=== PATIENT | male | born 1985 | race Caucasian/White ===

== ENCOUNTER 2023-07-02 22:59 | Emergency (ER) | payer OTHER, SELFPAY ==
[2023-07-02 23:03] VITALS: BP 150/92; BP 167/94; PULSE 72; PULSE 90; RESP 18; TEMP 36.6; O2SAT 100; O2SAT 98; BMI 23.5
--- NOTE | 2023-07-03 01:25 | ED.GENADULT ---
HPI - General Adult General Chief complaint: Extremity Injury, Lower Stated complaint: Foot pain Time Seen by Provider: 07/03/23 01:02 Source: patient, RN notes reviewed and old records reviewed Mode of arrival: ambulatory Limitations: no limitations History of Present Illness HPI narrative: 37-year-old male presents for evaluation of bilateral foot pain. He reports he has been homeless and walking around. He denies any fevers, chills. He reports blisters to both of his feet. He believes his shoes are ?too small. ? Denies any trauma to the area Denies any depression or suicidal ideation at this time Related Data Allergies Allergy/AdvReac Type Severity Reaction Status Date / Time No Known Allergies Allergy Verified 07/02/23 23:06 Review of Systems Musculoskeletal: Comments: Bilateral foot pain Integumentary/Breasts: Skin/Breast: Reports sores Physical Exam ED Vital Signs: Vital Signs - 24 hr 07/02/23 23:03 Temperature 97.8 F Pulse Rate 72 Respiratory Rate 18 Blood Pressure 150/92 H Pulse Oximetry 100 Oxygen Delivery Method Room Air BMI result Body Mass Index 23.5 Skin Other: Patient has superficial blisters to the medial aspect of both heels and to the great toe on both feet. No surrounding erythema, significant open wounds, drainage Medical Decision Making Medical Decision Making MDM Narrative: Patient is homeless, he is walking around in the rain. His shoes are too small. Fortunately, we had appropriate size shoes in the donation bin that were provided to the patient. He was given some bandages to cover the blisters and instructed to keep it dry. He was also provided a pair of dry pants. He has no evidence of cellulitis or candidiasis Differential Diagnosis Differential Diagnoses: The differential diagnosis associated with the presentation includes Sores Blisters Cellulitis Paronychia Candidiasis Discharge Plan Discharge Clinical Impression: Bilateral foot pain Patient Disposition: Home, Self-Care Instructions: Blister (ED) Additional Instructions: Your feet do not appear infected, however you should keep them clean and dry as best as possible to prevent further blisters. Use ibuprofen or Tylenol for pain
== END 2023-07-03 02:24 | disposition home or self-care (01) ==
PROVIDERS: Emergency Provider Internal Medicine
DX: M79.671 Pain in right foot (principal); M79.672 Pain in left foot
CPT/HCPCS: 99282

== ENCOUNTER 2023-07-16 16:09 | Inpatient (IN) | payer OTHER, SELFPAY ==
[2023-07-16 16:42] VITALS: BP 143/80; PULSE 87; RESP 16; TEMP 36.8; O2SAT 98; BMI 23.5
[2023-07-16 16:45] VITALS: PULSE 82; RESP 14; O2SAT 97
--- NOTE | 2023-07-16 16:59 | ED.PSYCH ---
HPI - Psych General Chief Complaint: Psychiatric Symptoms Stated Complaint: SI Time Seen by Provider: 07/16/23 16:39 Source: patient Mode of arrival: ambulatory Limitations: no limitations History of Present Illness HPI Narrative: 37 year old male hx of IVDA ( cocaine and heroin), anxiety, depression, homelessness presenting w/ concerns of suicidal ideation w/ plan to overdose. Patient wanted to try to overdose today however, did not have enough money to do so. Patient tells me his family life isnt where he wants it to be and this hs been bothering him. He doesnt have much of a support system. Today he even told his brother he wanted to . After he realized he didnt have enough money to buy drugs to overdose he though about jumping off a bridge. Tells me hes having drug induced paranoia also. Denies medical complaints. Related Data Home Medications Medication Instructions Recorded Confirmed bupropion HCl 150 mg 24 hr tablet, 150 mg PO QAM 07/16/23 07/16/23 extended release bupropion HCl 300 mg 24 hr tablet, 300 mg PO DAILY 07/16/23 07/16/23 extended release clonidine HCl 0.1 mg tablet 0.2 mg PO BID 07/16/23 07/16/23 lamotrigine 150 mg tablet 150 mg PO DAILY 07/16/23 07/16/23 methadone 10 mg/mL oral 100 mg PO DAILY 07/16/23 07/16/23 concentrate (Methadose) mirtazapine 45 mg tablet 45 mg PO BEDTIME 07/16/23 07/16/23 nicotine 21 mg/24 hr daily 1 patch topical DAILY 07/16/23 07/16/23 transdermal patch quetiapine 200 mg tablet 200 mg PO BEDTIME 07/16/23 07/16/23 Allergies Allergy/AdvReac Type Severity Reaction Status Date / Time No Known Allergies Allergy Verified 07/16/23 16:48 Review of Systems Review of Systems: Constitutional : No Weight loss, No Fever, No Chills, No Fatigue, No Malaise ENT/Mouth : No sore throat, No Rhinorrhea Eyes: No Eye Pain, No Swelling, No Redness Cardiovascular : No Chest Pain, No SOB, No Dyspnea on Exertion, No Orthopnea, No Edema, No Palpitations Respiratory : No Cough, No Sputum, No Wheezing Gastrointestinal : No Nausea, No Vomiting, No Diarrhea, No Constipation, No abdominal Pain, No Hematochezia, No Melena Genitourinary : No Dysuria, No Urinary Frequency, No Hematuria, Musculoskeletal : No joint pain, No Myalgias, No Joint Swelling Skin : No Skin Lesions, No rash Neuro : No Weakness, No Numbness, No Dizziness, No Headache Psych : + Anxiety/Panic, + Depression, + SI , No HI All other systems reviewed and are negative Yes all other systems are reviewed and are negative [facility] Social History Social History Alcohol intake: current Alcohol intake frequency: holidays/special occasions only Smoked in Last 30 Days: Yes Use of substances other than those prescribed or required for medical reasons: Yes Substance Use Type: Crack/Cocaine and Opiates Substance Use Frequency: Recent Binge Last Used Substance: Just Prior to Admission Any prior treatment program specific to substance use: No Advance Directives: No Advance Directives Information Provided: No Physical Exam Vital Signs: Vital Signs: Last Vital Signs Temp 98.3 F 07/16/23 16:42 Pulse 82 07/16/23 16:45 Resp 14 07/16/23 16:45 BP 143/80 H 07/16/23 16:42 Pulse Ox 97 07/16/23 16:45 O2 Del Method Room Air 07/16/23 16:45 BMI result Body Mass Index 23.5 Course Reevaluation(s) Reevaluation #1: CBC no acute findings needing intervention. Chemistry unremarkable. UA clean. + Fentanyl and cocaine. Negative ethynal At this time physician observation will be initiated. This will allow more time for patient to be evaluated by care team . At time observation was started patient common cooperative no acute distress, stable vital signs. Will continue to monitor. Time: 17:54 Medical Decision Making Medical Decision Making [facility] Narrative: 165 37 year old male presents w/ complaints of si w/ intent to overdose X months but worsening PE benign Hx and PE concerning for anxiety w/ depression & suicidal ideation. Unlikely metabolic derangements/ infection. Plan- medical clearance, evaluation by care team. -19:50: Care team evaluated the patient: Section 12. Patient has a significant history of suicide attempts including drinking motor oil. Differential Diagnosis Differential Diagnoses: The differential diagnosis associated with the presentation includes Hx and PE concerning for anxiety w/ depression & suicidal ideation. Unlikely metabolic derangements/ infection. Admission/Observation Consideration of admission/observation: Escalation of care including admission/observation considered possible Lab Data [facility] Lab Attestation statement: I reviewed the patient's lab results. 07/16/23 17:20 07/16/23 17:20 Labs: Lab Results 07/16/23 07/16/23 07/16/23 Range/Units 16:59 17:00 17:20 WBC 8.3 (4.8-10.8) X10*3/uL RBC 4.25 L (4.60-5.80) X10*6/uL Hgb 12.4 L (14.0-18.0) g/dl Hct 36.6 L (42.0-52.0) % MCV 86.1 (80.0-98.0) fL MCH 29.2 (27.0-33.0) pg MCHC 33.9 (31.0-36.0) g/dl RDW 13.2 (11.0-16.0) % Plt Count 260 (160-400) X10*3/uL MPV 9.0 L (9.4-12.4) fL Immature Gran % (Auto) 0.2 (0.0-0.4) % Neut % (Auto) 60.5 (45-73) % Lymph % (Auto) 28.6 (20-40) % [place] % (Auto) 8.9 (2-11) % Eos % (Auto) 1.4 (0-4) % Baso % (Auto) 0.4 (0-2) % Lymph # (Auto) 2.4 (1.2-4.9) X10*3/uL [place] # (Auto) 0.7 (0.1-1.2) X10*3/uL Eos # (Auto) 0.1 (0.0-0.4) X10*3/uL Baso # (Auto) 0.0 (0.0-0.2) X10*3/uL Abs Immat Gran (auto) 0.02 (0.00-0.03) X10*3/uL Absolute Neuts (auto) 5.0 (2.0-8.3) x10*3/uL Absolute Nucleated RBC 0.000 (0.0-0.012) X10*3/uL Nucleated RBC % (auto) 0.0 (0.0-0.2) /100WBC Sodium 141 (135-145) mmol/L Potassium 3.6 (3.3-5.1) mmol/L Chloride 107 (96-108) mmol/L Carbon Dioxide 24 (22-29) mmol/L Anion Gap 14 (12-20) BUN 19 H (9-16) mg/dL Creatinine 0.83 (0.5-1.4) mg/dL Estim Creat Clear Calc 115.0 Estimated GFR > 60 Random Glucose 97 (60-115) mg/dL Calcium 9.3 (8.4-10.2) mg/dL Total Bilirubin 0.4 (0.0-1.0) mg/dL AST 63 H (5-37) U/L ALT 30 (0-40) U/L Alkaline Phosphatase 75 (39-117) U/L Total Protein 8.1 H (6.5-8.0) g/dL Albumin 4.2 (3.5-5.0) g/dL Urine Color Dark Yellow Urine Appearance Clear Urine pH 6.0 (5.0-9.0) Ur Specific [place] >= 1.030 H (1.005-1.025) Urine Protein 30 (1+) H (Neg-Trace) mg/dL Urine Glucose (UA) Negative (Negative) mg/dL Urine Ketones Trace (Negative) mg/dL Urine Blood Negative (Negative) Urine Nitrite Negative (Negative) Ur Leukocyte Esterase Negative (Negative) Urine RBC 0-2 (0-2) /HPF Urine WBC 0-5 (0-5) /HPF Ur Squamous Epith Cells 0-2 (0-2) /HPF Urine Bacteria None Seen (None Seen) Hyaline Casts 0-2 (0-2) /LPF Urine Opiates Screen Not Detected (Not Detect) Urine Fentanyl Screen POSITIVE H (Not Detect) Ur Barbiturates Screen Not Detected (Not Detect) Ur Phencyclidine Scrn Not Detected (Not Detect) Ur Amphetamines Screen Not Detected (Not Detect) U Benzodiazepines Scrn Not Detected (Not Detect) Urine Cocaine Screen POSITIVE H (Not Detect) U Marijuana (THC) Screen Not Detected (Not Detect) Ethyl Alcohol < 10 mg/dL COVID-19 (FARIDA) Negative (Negative) COVID-19 Clin Com See Note Chronic Conditions Patient?s care impacted by: Other (polysubstance abuse ) Social Determinants Patient?s care significantly limited by Social Determinants of Health including: Inadequate housing, Low income, Alcoholism and drug addiction in family, Problems related to primary support group, Unemployment, Problems related to employment and Other Social Determinant of Health Critical Care Time Critical Care Time Critical Care Time: No Discharge Plan Discharge Clinical Impression: Depression, Suicidal ideation Patient Disposition: Still a Patient Prescriptions: No Action lamotrigine 150 mg tablet 150 mg PO DAILY clonidine HCl 0.1 mg tablet 0.2 mg PO BID quetiapine 200 mg tablet 200 mg PO BEDTIME nicotine 21 mg/24 hr patch 24 hour 1 patch topical DAILY mirtazapine 45 mg tablet 45 mg PO BEDTIME bupropion HCl 300 mg tablet extended release 24 hr 300 mg PO DAILY bupropion HCl 150 mg tablet extended release 24 hr 150 mg PO QAM methadone [Methadose] 10 mg/mL Concentrate 100 mg PO DAILY Interventions: [place]-Suicide Risk Severity Scale Last Done: 07/16/23 16:45
[2023-07-16 17:11] LABS: Appearance Urine Clear; Color Urine Dark Yellow; Glucose Urine UA Negative (Negative); Leukocyte Esterase Urine Negative (Negative); Nitrite Urine Negative (Negative); Specific Gravity - Urine >= 1.030 (1.005-1.025); UMIC TRIGGER UACC YES; Urine Blood Negative (Negative); Urine Ketones Trace mg/dL (Negative); Urine Protein 30 (1+) mg/dL (Neg-Trace)
--- NOTE | 2023-07-16 17:11 | PC.NURSE ---
Pt comes to the ED requesting help due to increasing SI thoughts with a plan to overdose to end his life. Pt reports increased drug use since being discharged from [facility] two days ago. Pt verbalizes that he was at [facility] for similar presentation and was receiving all his medications and methadone there. He is calm and cooperative, offering no complaints to this RN at this time, respirations even and unlabored, no apparent distress noted
[2023-07-16 17:15] LABS: Amphetamine Screen Urine Not Detected (Not Detect); Barbiturates, Urine Not Detected (Not Detect); Benzodiazepines Screen Urine Not Detected (Not Detect); Cannabinoid Screen Urine Not Detected (Not Detect); Cocaine Screen Urine POSITIVE (Not Detect); Fentanyl, urine POSITIVE (Not Detect); Opiate Screen Urine Not Detected (Not Detect); Phencyclidine Screen Urine Not Detected (Not Detect)
--- NOTE | 2023-07-16 17:16 | HE.PHANOTE ---
[facility] has received patient's last dose letter from Jammie Hemphill in a sealed envelope. Patient last received methadone 100 mg on 07/16/2023. Last dose letter signed by Willie Moreno RN. Keely Salcido, MarvinD
[2023-07-16 17:26] LABS: MANUAL DIFF FLAG NO
[2023-07-16 17:41] LABS: Basophils Percent Auto 0.4 % (0-2); Eosinophils Absolute Auto 0.1 X10*3/uL (0.0-0.4); Eosinophils Percent Auto 1.4 % (0-4); Hematocrit 36.6 % (42.0-52.0); Hemoglobin 12.4 g/dl (14.0-18.0); Imm Gran Abs Auto 0.02 X10*3/uL (0.00-0.03); Imm Gran Pct Auto 0.2 % (0.0-0.4); Lymphocytes Absolute Auto 2.4 X10*3/uL (1.2-4.9); Lymphocytes Percent Auto 28.6 % (20-40); Mean Corpuscular HGB Conc 33.9 g/dl (31.0-36.0); Mean Corpuscular Hemoglobin 29.2 pg (27.0-33.0); Mean Corpuscular Volume 86.1 fL (80.0-98.0); Monocytes Absolute Auto 0.7 X10*3/uL (0.1-1.2); Monocytes Percent Auto 8.9 % (2-11); Neutrophils Percent Auto 60.5 % (45-73); Platelet Count 260 X10*3/uL (160-400); Red Blood Count 4.25 X10*6/uL (4.60-5.80); Red Cell Distribution Width 13.2 % (11.0-16.0); White Blood Count 8.3 X10*3/uL (4.8-10.8)
[2023-07-16 17:44] LABS: Alanine Aminotransferase 30 U/L (0-40); Albumin Level 4.2 g/dL (3.5-5.0); Alkaline Phosphatase 75 U/L (39-117); Anion Gap 14 (12-20); Aspartate Amino Transferase 63 U/L (5-37); Bilirubin Total 0.4 mg/dL (0.0-1.0); Blood Urea Nitrogen 19 mg/dL (9-16); Calcium 9.3 mg/dL (8.4-10.2); Carbon Dioxide 24 mmol/L (22-29); Chloride 107 mmol/L (96-108); Estimated Glomerular Filt Rate > 60; Ethanol < 10 mg/dL; Glucose Random 97 mg/dL (60-115); Potassium 3.6 mmol/L (3.3-5.1); Sodium 141 mmol/L (135-145); Total Protein 8.1 g/dL (6.5-8.0)
[2023-07-16 17:55] LABS: COVID-19 Test Negative (Negative); IDNOW Serial# 08D9AD1C
[2023-07-16 18:25] LABS: Bacteria Urine None Seen (None Seen); Hyaline Casts Urine 0-2 /LPF (0-2); RBC Urine 0-2 /HPF (0-2); Squamous Epithelial Cell Urine 0-2 /HPF (0-2); WBC Urine 0-5 /HPF (0-5)
--- NOTE | 2023-07-16 19:17 | PC.NURSE ---
patient appears to remain asleep at present respirations are even and unlabored patient appears in no distress
--- NOTE | 2023-07-16 20:22 | PHA.MEDREC ---
Pharmacy Consult ? Medication Reconciliation Pharmacy has reviewed the medication reconciliation completed by Bri. Keely Salcido, MarvinD
[2023-07-16] MEDS: QUEtiapine Fumarate 200 MG TABLET PO (20:32)
[2023-07-16] MEDS: Mirtazapine 15 MG TABLET 45 MG PO (20:32)
[2023-07-16] MEDS: cloNIDine HCL 0.2 MG TABLET PO (20:32)
--- NOTE | 2023-07-16 21:46 | MHC.CARE ---
CARE Team evaluation complete. Pt is an inpatient bedsearch; on a section 12A for safety. ED Provider, POD RN and Pt are aware of disposition.
--- NOTE | 2023-07-17 | ECG_ITS ---
Test Reason : check qt Blood Pressure : / mmHG Vent. Rate : 067 BPM Atrial Rate : 067 BPM P-R Int : 144 ms QRS Dur : 086 ms QT Int : 418 ms P-R-T Axes : 039 020 006 degrees QTc Int : 441 ms Normal sinus rhythm Normal ECG No previous ECGs available Referred By: Koby Kovacs Electronically Signed By:VINCENT HATHAWAY
[2023-07-17 08:16] VITALS: BP 100/60; PULSE 78; RESP 18; TEMP 36.6; O2SAT 99
[2023-07-17] MEDS: lamoTRIgine 25 MG TABLET 150 MG PO (08:35)
[2023-07-17] MEDS: methADONE HCl 20 MG/2 ML ORAL.CONC 100 MG PO (08:36)
[2023-07-17] MEDS: buPROPion HCl XL 150 MG TAB.ER.24H PO (08:36)
[2023-07-17] MEDS: cloNIDine HCL 0.2 MG TABLET PO ×2 (08:36→20:31)
[2023-07-17] MEDS: buPROPion HCl XL 300 MG TAB.ER.24H PO (08:36)
[2023-07-17] MEDS: Nicotine Polacrilex 2 MG GUM BUCCAL (09:20)
--- NOTE | 2023-07-17 10:38 | PC.NURSE ---
patient medicated per the MAR, offering no complaints at this time. respirations even and unlabored, potential admission to the floors today
[2023-07-17 16:43] VITALS: BP 119/72; PULSE 66; RESP 20; TEMP 36.7; O2SAT 100
[2023-07-17] MEDS: Nicotine Polacrilex 2 MG GUM 4 MG BUCCAL ×3 (16:47→20:31)
--- NOTE | 2023-07-17 16:48 | PC.ADMIT ---
Pt is a 37 y/o persian speaking male admitted from the ED on a CV. Pt has admitted after increased suicidal ideation and depression. Pt was discharged from [facility] approx 5 days ago and didn't go to the CSS they were offering. Pt reported, that he wanted to overdose on Fentanyl or jump of the bridge. Pt is currently homeless. Pt was A&O x3, eye contact was poor, speech was low in tone. Pts mood is depressed with a blunted affect. Pt was calm and cooperative. Pt denied any plan or intent of SI/HI. Pt denied any paranoia, but crisis assessment says, pt was reporting increased paranoia about people being after him. Thought process was tangential. Pt reports difficulty getting too sleep and staying asleep. Pt reports he hasn't drank ETOH for ten years. Pts tox screen was positive Fentanyl and Cocaine. Pt says, I left [facility] and went on a cocaine binge. Pt has been using substances including cocaine and heroin for aprrox. 18 years, currently on Methadone. Pt has no acute medical issues. He does have a old umbilical hernia which he denies pain or discomfort from. Pt placed on 15 minute checks for safety.
[2023-07-17 20:24] VITALS: BP 106/54; PULSE 71; RESP 16; TEMP 37; O2SAT 97
[2023-07-17] MEDS: Mirtazapine 15 MG TABLET 45 MG PO (20:30)
[2023-07-17] MEDS: QUEtiapine Fumarate 200 MG TABLET PO (20:30)
[2023-07-18 08:00] VITALS: BP 111/77; PULSE 67; RESP 16; TEMP 36.3; O2SAT 100
[2023-07-18] MEDS: lamoTRIgine 25 MG TABLET 150 MG PO (08:54)
[2023-07-18] MEDS: buPROPion HCl XL 150 MG TAB.ER.24H PO (08:55)
[2023-07-18] MEDS: buPROPion HCl XL 300 MG TAB.ER.24H PO (08:55)
[2023-07-18] MEDS: methADONE HCl 20 MG/2 ML ORAL.CONC 100 MG PO (08:56)
[2023-07-18] MEDS: cloNIDine HCL 0.2 MG TABLET PO ×2 (09:00→20:28)
[2023-07-18] MEDS: Nicotine Polacrilex 2 MG GUM 4 MG BUCCAL ×6 (09:20→21:09)
--- NOTE | 2023-07-18 09:25 | P.HPPS_ITS ---
HPI Date of Service: 07/18/23 Chief Complaint: crisis Sources of Information: patient interviewed, chart reviewed and crisis/core team assessment reviewed HPI Subjective Notes: [place] Warning and Conditional Voluntary Narrative: Patient is a 37 year old male with hx of Bipolar d/o, opioid use d/o, and cocaine use d/o who self presented d/t suicidal ideation with plan to overdose on fentanyl secondary to increased anxiety and depression. Per crisis report, pt did not have enough money to overdose and contemplated jumping off a bridge but decided to come get help instead. Pt was discharged from [facility] four days ago, did not follow up with aftercare and went on a drug binge . Pt has struggled with mental illness for the last 18 years(hx of bipolar d/o); pt mother reported hx of prior attempts starting when pt graduated high school, including drinking antifreeze and motor oil, attempts at drowning himself, hanging himself, being stopped from jumping off a building and laying on train tracks. Pt's mother also reported hx of 6-8 overdoses; hx of detoxes, rehabs and inpatient hospitalizations (last detox admission was December 2022). Mother stated, I think these are cries for help and he does not want to . Pt reports paranoia with drug use and believes someone is out to get me or that something bad will happen . UTOX positive for fentanyl and cocaine; he reported binging cocaine and crack for the past four days . Pt reported his longest time with sobriety has been 7-8 months. During admission assessment, pt present calm and cooperative. Pt reports feeling depressed and suicidal ; pt stated, I was feeling depressed and suicidal. I haven't been talking to my family, I've been using drugs and not wanting to do anything. I'm also getting paranoid when I use . Pt reports he was using 1-2 bags of heroin and 30 capsules of cocaine for the past few days . Pt denies any withdrawal symptoms. He would like HIV/Hep C testing. Pt stated, I don't know what is causing my depression. Sometimes I think if I was it would be better . Pt reports passive suicidal ideation with no plan. denies HI/VH/AH. He reports being medication compliant prior to admission. Pt reports he is interested in being referred to a substance abuse program. Past Psychiatric History: Psychiatrist: Daniela Croft at [facility] Therapist: Zuhair Wendy [place] [facility] Reviewed: Yes [facility] Family History: unknown Social History: homeless, single, no children, unemployed. high school graduate. Substance History: UTOX positive for cocaine and fentanyl. hx of using cocaine, crack, meth, heroin, fentanyl, stimulants. Trauma History: denies Diagnostics Vital Signs (24Hr): Vital Signs - 24 hr 07/17/23 16:43 07/17/23 20:24 Temperature 98.1 F 98.6 F Pulse Rate 66 71 Respiratory Rate 20 16 Blood Pressure 119/72 106/54 L Pulse Oximetry 100 97 Oxygen Delivery Method Room Air Room Air BMI result Body Mass Index 23.5 Labs 07/16/23 17:20 07/16/23 17:20 Labs: Laboratory Results - last 48 hr 07/16/23 07/16/23 07/16/23 16:59 17:00 17:20 WBC 8.3 RBC 4.25 L Hgb 12.4 L Hct 36.6 L MCV 86.1 MCH 29.2 MCHC 33.9 RDW 13.2 Plt Count 260 MPV 9.0 L Immature Gran % (Auto) 0.2 Neut % (Auto) 60.5 Lymph % (Auto) 28.6 [place] % (Auto) 8.9 Eos % (Auto) 1.4 Baso % (Auto) 0.4 Lymph # (Auto) 2.4 [place] # (Auto) 0.7 Eos # (Auto) 0.1 Baso # (Auto) 0.0 Abs Immat Gran (auto) 0.02 Absolute Neuts (auto) 5.0 Absolute Nucleated RBC 0.000 Nucleated RBC % (auto) 0.0 Sodium 141 Potassium 3.6 Chloride 107 Carbon Dioxide 24 Anion Gap 14 BUN 19 H Creatinine 0.83 Estim Creat Clear Calc 115.0 Estimated GFR > 60 Random Glucose 97 Calcium 9.3 Total Bilirubin 0.4 AST 63 H ALT 30 Alkaline Phosphatase 75 Total Protein 8.1 H Albumin 4.2 Urine Color Dark Yellow Urine Appearance Clear Urine pH 6.0 Ur Specific [place] >= 1.030 H Urine Protein 30 (1+) H Urine Glucose (UA) Negative Urine Ketones Trace Urine Blood Negative Urine Nitrite Negative Ur Leukocyte Esterase Negative Urine RBC 0-2 Urine WBC 0-5 Ur Squamous Epith Cells 0-2 Urine Bacteria None Seen Hyaline Casts 0-2 Urine Opiates Screen Not Detected Urine Fentanyl Screen POSITIVE H Ur Barbiturates Screen Not Detected Ur Phencyclidine Scrn Not Detected Ur Amphetamines Screen Not Detected U Benzodiazepines Scrn Not Detected Urine Cocaine Screen POSITIVE H U Marijuana (THC) Screen Not Detected Ethyl Alcohol < 10 COVID-19 (FARIDA) Negative COVID-19 Clin Com See Note Meds/Allergies Meds Home Medications Medication Instructions Recorded Confirmed Type bupropion HCl 150 mg 24 hr tablet, 150 mg PO QAM 07/16/23 07/16/23 History extended release bupropion HCl 300 mg 24 hr tablet, 300 mg PO DAILY 07/16/23 07/16/23 History extended release clonidine HCl 0.1 mg tablet 0.2 mg PO BID 07/16/23 07/16/23 History lamotrigine 150 mg tablet 150 mg PO DAILY 07/16/23 07/16/23 History methadone 10 mg/mL oral 100 mg PO DAILY 07/16/23 07/16/23 History concentrate (Methadose) mirtazapine 45 mg tablet 45 mg PO BEDTIME 07/16/23 07/16/23 History nicotine 21 mg/24 hr daily 1 patch topical DAILY 07/16/23 07/16/23 History transdermal patch quetiapine 200 mg tablet 200 mg PO BEDTIME 07/16/23 07/16/23 History Allergies Allergies Allergy/AdvReac Type Severity Reaction Status Date / Time No Known Allergies Allergy Verified 07/16/23 16:48 Mental Status Exam Mental Status Exam Narrative: Pt is alert and oriented; behavior is cooperative and calm; dressed in casual attire; mood is described as depressed ; eye contact appropriate; Speech is normal rate, volume and prosody and not pressured; thought process is organized and goal directed; Thought content is on tx; denies HI/VH/AH. Passive SI. Assessment & Plan Assessment & Plan (1) Bipolar 1 disorder: Status: Acute Code(s): F31.9 - Bipolar disorder, unspecified (2) Cocaine use disorder: Status: Acute Code(s): F14.10 - Cocaine abuse, uncomplicated (3) Opioid use disorder: Status: Acute Code(s): F11.90 - Opioid use, unspecified, uncomplicated Plan Patient is a 37 year old male with hx of Bipolar d/o, opioid use d/o, and cocaine use d/o who self presented d/t suicidal ideation with plan to overdose on fentanyl secondary to increased anxiety and depression. Plan: CV 15 minute safety checks Continue home medications Consult to addiction medicine for control and recovery combat rescue Referral to substance abuse program Labs for HIV/Hep panel discharge planning Patient educated on: diagnosis, medication risk/benefits, substance abuse and therapeutic strategies Informed Consent: understands Reason for continued inpatient stay Substantial Risk for: harm to self and med/psych decompensation Statement Statement: I have reviewed the history and physical and performed a pertinent examination on my patient. No changes have occurred unless specified. If the History and Physical was not performed prior to admission, the Hospitalist's service will be consulted for completing the admission physical. Time Spent With Patient Time: Total time managing care of this patient today _60___ minutes.
[2023-07-18 18:00] VITALS: BP 122/74; PULSE 75; RESP 16; TEMP 36.7; O2SAT 99
[2023-07-18] MEDS: QUEtiapine Fumarate 200 MG TABLET PO (20:27)
[2023-07-18] MEDS: Mirtazapine 15 MG TABLET 45 MG PO (20:27)
--- NOTE | 2023-07-18 21:09 | PC.NURSE ---
Patient requested nicotine gum PO prn for cravings.
--- NOTE | 2023-07-19 07:26 | P.PNPSI_ITS ---
Subjective Subjective Date of Service: 07/19/23 Reason For Visit: crisis Subjective Notes: Conditional Voluntary Interim History: Reviewed with . active on unit, social with peers. pt reports feeling okay today; pt stated, I'm not really feeling anything right now because it's too early to tell. I'm just hoping to get into a program. I'm starting to feel like I want to live . pt continues to report passive SI. denies HI/VH/AH. Medication Compliance: Yes Side effects from medications: No Review of Systems Constitutional: Reports as per HPI Eyes: Reports as per HPI Reports as per HPI Cardiovascular: Reports as per HPI Respiratory: Reports as per HPI Gastrointestinal: Reports as per HPI Genitourinary: Reports as per HPI Musculoskeletal: Reports as per HPI Skin/Breast: Reports as per HPI Reports as per HPI Psychiatric: Reports as per HPI Endocrine: Reports as per HPI Hematologic/Lymphatic: Reports as per HPI Allergic/Immunologic: Reports as per HPI Mental Status Exam Mental Status Exam Narrative: Pt is alert and oriented; behavior is cooperative and calm; dressed in casual attire; mood is described as okay ; eye contact appropriate; Speech is normal rate, volume and prosody and not pressured; thought process is organized and goal directed; Thought content is on tx; denies HI/VH/AH. Passive SI. Diagnostics Vital Signs (24Hr): Vital Signs - 24 hr 07/18/23 08:00 07/18/23 18:00 Temperature 97.3 F 98.1 F Pulse Rate 67 75 Respiratory Rate 16 16 Blood Pressure 111/77 122/74 Pulse Oximetry 100 99 Oxygen Delivery Method Room Air Room Air BMI result Body Mass Index 23.5 Labs 07/16/23 17:20 07/16/23 17:20 Medications Medications Current Medications Acetaminophen (Acetaminophen 325 Mg Tablet) 650 mg PO Q6H PRN PRN Reason: Headache/Pain Mild Scale (1-3) Al Hydroxide/Mg Hydroxide (Magnesium Hydrox/Alum Hydrox 30 Ml Oral.Susp) 30 ml PO Q6H PRN PRN Reason: Heartburn/Nausea Bupropion HCl (Bupropion Hcl Xl 150 Mg Tab.Er.24h) 150 mg PO DAILY [facility] Last Admin: 07/18/23 08:55 Dose: 150 mg Bupropion HCl (Bupropion Hcl Xl 300 Mg Tab.Er.24h) 300 mg PO DAILY [facility] Last Admin: 07/18/23 08:55 Dose: 300 mg Clonidine HCl (Clonidine Hcl 0.2 Mg Tablet) 0.2 mg PO BID [facility]; Protocol Last Admin: 07/18/23 20:28 Dose: 0.2 mg Hydroxyzine HCl (Hydroxyzine Hcl 25 Mg Tablet) 25 mg PO Q6H PRN PRN Reason: Anxiety Lamotrigine (Lamotrigine 25 Mg Tablet) 150 mg PO DAILY [facility] Last Admin: 07/18/23 08:54 Dose: 150 mg Magnesium Hydroxide (Milk Of Magnesia 30 Ml Oral.Susp) 30 ml PO DAILY PRN PRN Reason: Constipation Methadone HCl (Methadone Hcl 20 Mg/2 Ml Oral.Conc) 100 mg PO DAILY [facility] Last Admin: 07/18/23 08:56 Dose: 100 mg Mirtazapine (Mirtazapine 15 Mg Tablet) 45 mg PO BEDTIME [facility] Last Admin: 07/18/23 20:27 Dose: 45 mg Nicotine (Nicotine 21 Mg Patch.Td24) 21 mg TRANSDERMA DAILY [facility] Last Admin: 07/18/23 09:00 Dose: Not Given Nicotine Polacrilex (Nicotine Polacrilex 2 Mg Gum) 4 mg BUCCAL Q2H PRN PRN Reason: Nicotine Cravings Last Admin: 07/18/23 21:09 Dose: 4 mg Quetiapine Fumarate (Quetiapine Fumarate 200 Mg Tablet) 200 mg PO BEDTIME [facility] Last Admin: 07/18/23 20:27 Dose: 200 mg Trazodone HCl (Trazodone Hcl 50 Mg Tablet) 50 mg PO BEDTIME MRX1 PRN PRN Reason: Insomnia Allergies Allergies Allergy/AdvReac Type Severity Reaction Status Date / Time No Known Allergies Allergy Verified 07/16/23 16:48 Assessment & Plan Assessment & Plan (1) Bipolar 1 disorder: Status: Acute Code(s): F31.9 - Bipolar disorder, unspecified (2) Cocaine use disorder: Status: Acute Code(s): F14.10 - Cocaine abuse, uncomplicated (3) Opioid use disorder: Status: Acute Code(s): F11.90 - Opioid use, unspecified, uncomplicated Plan Patient is a 37 year old male with hx of Bipolar d/o, opioid use d/o, and cocaine use d/o who self presented d/t suicidal ideation with plan to overdose on fentanyl secondary to increased anxiety and depression. Plan: CV 15 minute safety checks Continue home medications Consult to addiction medicine for women's swim coach Referral to substance abuse program Labs for HIV/Hep panel discharge planning 07/18: active on unit, social with peers. pt reports feeling okay today; pt stated, I'm not really feeling anything right now because it's too early to tell. I'm just hoping to get into a program. I'm starting to feel like I want to live . pt continues to report passive SI. denies HI/VH/AH. continue current tx plan. Patient educated on: diagnosis, medication risk/benefits and substance abuse Informed Consent: understands Reason for continued inpatient stay Substantial Risk for: harm to self and med/psych decompensation Time Spent With Patient Time: Total time managing care of this patient today _20___ minutes.
[2023-07-19 07:55] VITALS: BP 123/79; PULSE 66; TEMP 36.2; O2SAT 100
[2023-07-19] MEDS: buPROPion HCl XL 300 MG TAB.ER.24H PO (08:28)
[2023-07-19] MEDS: cloNIDine HCL 0.2 MG TABLET PO ×2 (08:28→20:24)
[2023-07-19] MEDS: buPROPion HCl XL 150 MG TAB.ER.24H PO (08:28)
[2023-07-19] MEDS: lamoTRIgine 25 MG TABLET 150 MG PO (08:28)
[2023-07-19] MEDS: methADONE HCl 20 MG/2 ML ORAL.CONC 100 MG PO (08:31)
[2023-07-19] MEDS: Nicotine Polacrilex 2 MG GUM 4 MG BUCCAL ×6 (09:09→20:24)
[2023-07-19 18:27] LABS: Alanine Aminotransferase 34 U/L (0-40); Albumin Level 3.8 g/dL (3.5-5.0); Alkaline Phosphatase 83 U/L (39-117); Anion Gap 13 (12-20); Aspartate Amino Transferase 31 U/L (5-37); Bilirubin Total 0.2 mg/dL (0.0-1.0); Blood Urea Nitrogen 12 mg/dL (9-16); Calcium 9.1 mg/dL (8.4-10.2); Carbon Dioxide 29 mmol/L (22-29); Chloride 101 mmol/L (96-108); Cholesterol 161 mg/dL (<200); Estimated Glomerular Filt Rate > 60; Glucose Fasting 83 mg/dL (60-99); HDL Cholesterol 48 mg/dL (>40); LDL Cholesterol Calculated 70 mg/dL (<100); Potassium 3.8 mmol/L (3.3-5.1); Sodium 139 mmol/L (135-145); Total Protein 7.6 g/dL (6.5-8.0); Triglycerides 219 mg/dL (<150)
[2023-07-19 20:20] VITALS: BP 123/69; PULSE 70; RESP 16; TEMP 36.8; O2SAT 99
[2023-07-19] MEDS: Mirtazapine 15 MG TABLET 45 MG PO (20:23)
[2023-07-19] MEDS: QUEtiapine Fumarate 200 MG TABLET PO (20:24)
[2023-07-20 08:20] VITALS: BP 123/83; PULSE 68; RESP 18; TEMP 36.8; O2SAT 100
[2023-07-20] MEDS: lamoTRIgine 25 MG TABLET 150 MG PO (08:28)
[2023-07-20] MEDS: buPROPion HCl XL 150 MG TAB.ER.24H PO (08:29)
[2023-07-20] MEDS: buPROPion HCl XL 300 MG TAB.ER.24H PO (08:29)
[2023-07-20] MEDS: Nicotine Polacrilex 2 MG GUM 4 MG BUCCAL ×6 (08:29→20:36)
[2023-07-20] MEDS: cloNIDine HCL 0.2 MG TABLET PO ×2 (08:29→20:36)
[2023-07-20] MEDS: methADONE HCl 20 MG/2 ML ORAL.CONC 100 MG PO (08:32)
--- NOTE | 2023-07-20 11:55 | HO.PSYCHPN ---
Subjective Subjective Date of Service: 07/20/23 Reason For Visit: crisis Subjective Notes: Conditional Voluntary Interim History: Reviewed with . active on unit, social with peers. attending groups. Pt reports feeling a little better today; pt stated, I'm socializing more which is good because I usually isolate and it contributes to my depression . Pt reports he is hoping to get into a program . denies SI/HI/VH/AH. Hep panel and HIV labs results pending. Medication Compliance: Yes Side effects from medications: No Attending Groups: Yes Review of Systems Constitutional: Reports as per HPI Eyes: Reports as per HPI Reports as per HPI Cardiovascular: Reports as per HPI Respiratory: Reports as per HPI Gastrointestinal: Reports as per HPI Genitourinary: Reports as per HPI Musculoskeletal: Reports as per HPI Skin/Breast: Reports as per HPI Reports as per HPI Psychiatric: Reports as per HPI Endocrine: Reports as per HPI Hematologic/Lymphatic: Reports as per HPI Allergic/Immunologic: Reports as per HPI Mental Status Exam Mental Status Exam Narrative: Pt is alert and oriented; behavior is cooperative and calm; dressed in casual attire; mood is described as okay ; eye contact appropriate; Speech is normal rate, volume and prosody and not pressured; thought process is organized and goal directed; Thought content is on tx; denies SI/HI/VH/AH. Diagnostics Vital Signs (24Hr): Vital Signs - 24 hr 07/19/23 20:20 07/20/23 08:20 Temperature 98.2 F 98.2 F Pulse Rate 70 68 Respiratory Rate 16 18 Blood Pressure 123/69 123/83 Pulse Oximetry 99 100 Oxygen Delivery Method Room Air Room Air BMI result Body Mass Index 23.5 Labs 07/16/23 17:20 07/19/23 17:43 Labs: Laboratory Results - last 48 hr 07/19/23 17:43 Sodium 139 Potassium 3.8 Chloride 101 Carbon Dioxide 29 Anion Gap 13 BUN 12 Creatinine 0.83 Estim Creat Clear Calc 115.0 Estimated GFR > 60 Fasting Glucose 83 Calcium 9.1 Total Bilirubin 0.2 AST 31 ALT 34 Alkaline Phosphatase 83 Total Protein 7.6 Albumin 3.8 Triglycerides 219 H Cholesterol 161 LDL Cholesterol, Calc 70 HDL Cholesterol 48 Medications Medications Current Medications Acetaminophen (Acetaminophen 325 Mg Tablet) 650 mg PO Q6H PRN PRN Reason: Headache/Pain Mild Scale (1-3) Al Hydroxide/Mg Hydroxide (Magnesium Hydrox/Alum Hydrox 30 Ml Oral.Susp) 30 ml PO Q6H PRN PRN Reason: Heartburn/Nausea Bupropion HCl (Bupropion Hcl Xl 150 Mg Tab.Er.24h) 150 mg PO DAILY [facility] Last Admin: 07/20/23 08:29 Dose: 150 mg Bupropion HCl (Bupropion Hcl Xl 300 Mg Tab.Er.24h) 300 mg PO DAILY [facility] Last Admin: 07/20/23 08:29 Dose: 300 mg Clonidine HCl (Clonidine Hcl 0.2 Mg Tablet) 0.2 mg PO BID [facility]; Protocol Last Admin: 07/20/23 08:29 Dose: 0.2 mg Hydroxyzine HCl (Hydroxyzine Hcl 25 Mg Tablet) 25 mg PO Q6H PRN PRN Reason: Anxiety Lamotrigine (Lamotrigine 25 Mg Tablet) 150 mg PO DAILY [facility] Last Admin: 07/20/23 08:28 Dose: 150 mg Magnesium Hydroxide (Milk Of Magnesia 30 Ml Oral.Susp) 30 ml PO DAILY PRN PRN Reason: Constipation Methadone HCl (Methadone Hcl 20 Mg/2 Ml Oral.Conc) 100 mg PO DAILY [facility] Last Admin: 07/20/23 08:32 Dose: 100 mg Mirtazapine (Mirtazapine 15 Mg Tablet) 45 mg PO BEDTIME [facility] Last Admin: 07/19/23 20:23 Dose: 45 mg Nicotine (Nicotine 21 Mg Patch.Td24) 21 mg TRANSDERMA DAILY [facility] Last Admin: 07/20/23 08:39 Dose: Not Given Nicotine Polacrilex (Nicotine Polacrilex 2 Mg Gum) 4 mg BUCCAL Q2H PRN PRN Reason: Nicotine Cravings Last Admin: 07/20/23 10:42 Dose: 4 mg Quetiapine Fumarate (Quetiapine Fumarate 200 Mg Tablet) 200 mg PO BEDTIME [facility] Last Admin: 07/19/23 20:24 Dose: 200 mg Trazodone HCl (Trazodone Hcl 50 Mg Tablet) 50 mg PO BEDTIME MRX1 PRN PRN Reason: Insomnia Allergies Allergies Allergy/AdvReac Type Severity Reaction Status Date / Time No Known Allergies Allergy Verified 07/16/23 16:48 Assessment & Plan Assessment & Plan (1) Bipolar 1 disorder: Status: Acute Code(s): F31.9 - Bipolar disorder, unspecified (2) Cocaine use disorder: Status: Acute Code(s): F14.10 - Cocaine abuse, uncomplicated (3) Opioid use disorder: Status: Acute Code(s): F11.90 - Opioid use, unspecified, uncomplicated Plan Patient is a 37 year old male with hx of Bipolar d/o, opioid use d/o, and cocaine use d/o who self presented d/t suicidal ideation with plan to overdose on fentanyl secondary to increased anxiety and depression. Plan: CV 15 minute safety checks Continue home medications Consult to addiction medicine for control and recovery special tactics Referral to substance abuse program Labs for HIV/Hep panel discharge planning 07/18: active on unit, social with peers. pt reports feeling okay today; pt stated, I'm not really feeling anything right now because it's too early to tell. I'm just hoping to get into a program. I'm starting to feel like I want to live . pt continues to report passive SI. denies HI/VH/AH. continue current tx plan. 07/19: active on unit, social with peers. attending groups. Pt reports feeling a little better today; pt stated, I'm socializing more which is good because I usually isolate and it contributes to my depression . Pt reports he is hoping to get into a program . denies SI/HI/VH/AH. Hep panel and HIV labs results pending. Patient educated on: diagnosis, medication risk/benefits, substance abuse and therapeutic strategies Informed Consent: understands Reason for continued inpatient stay Substantial Risk for: med/psych decompensation Time Spent With Patient Time: Total time managing care of this patient today _20___ minutes.
[2023-07-20 18:00] VITALS: BP 116/73; PULSE 71; RESP 18; TEMP 37; O2SAT 98
[2023-07-20] MEDS: QUEtiapine Fumarate 200 MG TABLET PO (20:36)
[2023-07-20] MEDS: Mirtazapine 15 MG TABLET 45 MG PO (20:36)
[2023-07-21 04:27] LABS: HBS Num1 > 1000.00 mIU/mL (0-7.99); HBc Num1 1.36 S/CO (0.00-0.79); HBsAGNum1 0.31 S/CO (0.00-0.99); HIV AB/AG Nonreactive (Nonreactive); HIV Num 1 0.05 S/CO (0.00-0.99); Hepatitis A Antibody IgM 0.17 Index (0-0.79); Hepatitis B Surface Antigen Negative (Negative); ~HepC Num1 15.65 S/CO (0.00-0.79); ~Hepatitis A Antibody IgM Nonreactive (Nonreactive); ~Hepatitis B Surface Antibody REACTIVE (Nonreactive); ~Hepatitis C Antibody Reactive (Nonreactive)
[2023-07-21 05:18] LABS: HBc Num2 1.18 S/CO; HBc Num3 1.16 S/CO; Hepatitis B Core Antibody Reactive (Nonreactive)
[2023-07-21 08:16] VITALS: BP 111/74; PULSE 71; TEMP 2.4; TEMP 36.4; O2SAT 100
[2023-07-21] MEDS: lamoTRIgine 25 MG TABLET 150 MG PO (08:18)
[2023-07-21] MEDS: buPROPion HCl XL 300 MG TAB.ER.24H PO (08:18)
[2023-07-21] MEDS: buPROPion HCl XL 150 MG TAB.ER.24H PO (08:18)
[2023-07-21] MEDS: cloNIDine HCL 0.2 MG TABLET PO ×2 (08:19→20:26)
[2023-07-21] MEDS: methADONE HCl 20 MG/2 ML ORAL.CONC 100 MG PO (08:21)
--- NOTE | 2023-07-21 09:06 | P.PNPSI_ITS ---
Subjective Subjective Date of Service: 07/21/23 Reason For Visit: crisis Subjective Notes: Conditional Voluntary Interim History: Reviewed with . Pt reports feeling calm but anxious today; pt stated, I'm doing okay. I'm just hoping to get in somewhere . denies SI/HI/VH/AH. Medication Compliance: Yes Side effects from medications: No Attending Groups: Yes Review of Systems Constitutional: Reports as per HPI Eyes: Reports as per HPI Reports as per HPI Cardiovascular: Reports as per HPI Respiratory: Reports as per HPI Gastrointestinal: Reports as per HPI Genitourinary: Reports as per HPI Musculoskeletal: Reports as per HPI Skin/Breast: Reports as per HPI Reports as per HPI Psychiatric: Reports as per HPI Endocrine: Reports as per HPI Hematologic/Lymphatic: Reports as per HPI Allergic/Immunologic: Reports as per HPI Mental Status Exam Mental Status Exam Narrative: Pt is alert and oriented; behavior is cooperative and calm; dressed in casual attire; mood is described as okay ; eye contact appropriate; Speech is normal rate, volume and prosody and not pressured; thought process is organized and goal directed; Thought content is on tx; denies SI/HI/VH/AH. Diagnostics Vital Signs (24Hr): Vital Signs - 24 hr 07/20/23 18:00 07/21/23 08:16 Temperature 98.6 F 36.4 F L Pulse Rate 71 71 Respiratory Rate 18 Blood Pressure 116/73 111/74 Pulse Oximetry 98 100 Oxygen Delivery Method Room Air Room Air BMI result Body Mass Index 23.5 Labs 07/16/23 17:20 07/19/23 17:43 Labs: Laboratory Results - last 48 hr 07/19/23 17:43 Sodium 139 Potassium 3.8 Chloride 101 Carbon Dioxide 29 Anion Gap 13 BUN 12 Creatinine 0.83 Estim Creat Clear Calc 115.0 Estimated GFR > 60 Fasting Glucose 83 Calcium 9.1 Total Bilirubin 0.2 AST 31 ALT 34 Alkaline Phosphatase 83 Total Protein 7.6 Albumin 3.8 Triglycerides 219 H Cholesterol 161 LDL Cholesterol, Calc 70 HDL Cholesterol 48 Hepatitis A IgM Ab Nonreactive Hep Bs Antigen Negative Hep Bs Antibody REACTIVE Hep B Core Total Ab Reactive Hep B Core IgM Ab Cancelled Hepatitis C Ab (EIA) Reactive H HIV 1&2 Ab/P24 Ag 4thGn Nonreactive Medications Medications Current Medications Acetaminophen (Acetaminophen 325 Mg Tablet) 650 mg PO Q6H PRN PRN Reason: Headache/Pain Mild Scale (1-3) Al Hydroxide/Mg Hydroxide (Magnesium Hydrox/Alum Hydrox 30 Ml Oral.Susp) 30 ml PO Q6H PRN PRN Reason: Heartburn/Nausea Bupropion HCl (Bupropion Hcl Xl 150 Mg Tab.Er.24h) 150 mg PO DAILY [facility] Last Admin: 07/21/23 08:18 Dose: 150 mg Bupropion HCl (Bupropion Hcl Xl 300 Mg Tab.Er.24h) 300 mg PO DAILY [facility] Last Admin: 07/21/23 08:18 Dose: 300 mg Clonidine HCl (Clonidine Hcl 0.2 Mg Tablet) 0.2 mg PO BID [facility]; Protocol Last Admin: 07/21/23 08:19 Dose: 0.2 mg Hydroxyzine HCl (Hydroxyzine Hcl 25 Mg Tablet) 25 mg PO Q6H PRN PRN Reason: Anxiety Lamotrigine (Lamotrigine 25 Mg Tablet) 150 mg PO DAILY [facility] Last Admin: 07/21/23 08:18 Dose: 150 mg Magnesium Hydroxide (Milk Of Magnesia 30 Ml Oral.Susp) 30 ml PO DAILY PRN PRN Reason: Constipation Methadone HCl (Methadone Hcl 20 Mg/2 Ml Oral.Conc) 100 mg PO DAILY [facility] Last Admin: 07/21/23 08:21 Dose: 100 mg Mirtazapine (Mirtazapine 15 Mg Tablet) 45 mg PO BEDTIME [facility] Last Admin: 07/20/23 20:36 Dose: 45 mg Nicotine (Nicotine 21 Mg Patch.Td24) 21 mg TRANSDERMA DAILY [facility] Last Admin: 07/21/23 08:28 Dose: Not Given Nicotine Polacrilex (Nicotine Polacrilex 2 Mg Gum) 4 mg BUCCAL Q2H PRN PRN Reason: Nicotine Cravings Last Admin: 07/20/23 20:36 Dose: 4 mg Quetiapine Fumarate (Quetiapine Fumarate 200 Mg Tablet) 200 mg PO BEDTIME [facility] Last Admin: 07/20/23 20:36 Dose: 200 mg Trazodone HCl (Trazodone Hcl 50 Mg Tablet) 50 mg PO BEDTIME MRX1 PRN PRN Reason: Insomnia Allergies Allergies Allergy/AdvReac Type Severity Reaction Status Date / Time No Known Allergies Allergy Verified 07/16/23 16:48 Assessment & Plan Assessment & Plan (1) Bipolar 1 disorder: Status: Acute Code(s): F31.9 - Bipolar disorder, unspecified (2) Cocaine use disorder: Status: Acute Code(s): F14.10 - Cocaine abuse, uncomplicated (3) Opioid use disorder: Status: Acute Code(s): F11.90 - Opioid use, unspecified, uncomplicated Plan Patient is a 37 year old male with hx of Bipolar d/o, opioid use d/o, and cocaine use d/o who self presented d/t suicidal ideation with plan to overdose on fentanyl secondary to increased anxiety and depression. Plan: CV 15 minute safety checks Continue home medications Consult to addiction medicine for football coach Referral to substance abuse program Labs for HIV/Hep panel discharge planning 07/18: active on unit, social with peers. pt reports feeling okay today; pt stated, I'm not really feeling anything right now because it's too early to tell. I'm just hoping to get into a program. I'm starting to feel like I want to live . pt continues to report passive SI. denies HI/VH/AH. continue current tx plan. 07/19: active on unit, social with peers. attending groups. Pt reports feeling a little better today; pt stated, I'm socializing more which is good because I usually isolate and it contributes to my depression . Pt reports he is hoping to get into a program . denies SI/HI/VH/AH. Hep panel and HIV labs results pending. 07/20: Pt reports feeling calm but anxious today; pt stated, I'm doing okay. I'm just hoping to get in somewhere . denies SI/HI/VH/AH. animal nursery worker, Brianne, waiting to hear from [facility]. Patient educated on: diagnosis, medication risk/benefits, substance abuse and therapeutic strategies Informed Consent: understands Reason for continued inpatient stay Substantial Risk for: med/psych decompensation Time Spent With Patient Time: Total time managing care of this patient today _20___ minutes.
[2023-07-21] MEDS: Nicotine Polacrilex 2 MG GUM 4 MG BUCCAL ×5 (09:17→20:26)
--- NOTE | 2023-07-21 20:12 | MHC.RECOVSUP ---
? Reason for consult Recovery Support o Current location: 324[address] o Identified substance use concern: - Support ? Intervention: o Community resources provided o Harm reduction discussion ? Plan: o Patient to follow up with [facility] after discharge ? Additional information: Met with patient and we talked about and Harm reduction.. We talk about different pathways and the importance of networking..
[2023-07-21 20:15] VITALS: BP 112/68; PULSE 74; RESP 16; TEMP 36.7; O2SAT 100
[2023-07-21] MEDS: QUEtiapine Fumarate 200 MG TABLET PO (20:26)
[2023-07-21] MEDS: Mirtazapine 15 MG TABLET 45 MG PO (20:26)
[2023-07-22 06:00] VITALS: BP 109/63; PULSE 77; TEMP 36.3; O2SAT 98
[2023-07-22] MEDS: lamoTRIgine 25 MG TABLET 150 MG PO (08:20)
[2023-07-22] MEDS: buPROPion HCl XL 300 MG TAB.ER.24H PO (08:22)
[2023-07-22] MEDS: buPROPion HCl XL 150 MG TAB.ER.24H PO (08:22)
[2023-07-22] MEDS: cloNIDine HCL 0.2 MG TABLET PO ×2 (08:22→20:14)
[2023-07-22] MEDS: Nicotine Polacrilex 2 MG GUM 4 MG BUCCAL ×6 (08:23→20:14)
[2023-07-22] MEDS: methADONE HCl 20 MG/2 ML ORAL.CONC 100 MG PO (08:23)
--- NOTE | 2023-07-22 09:14 | HO.PSYCHPN ---
Subjective Subjective Date of Service: 07/22/23 Reason For Visit: crisis Subjective Notes: Conditional Voluntary Interim History: Reviewed with . active on unit. Pt reports feeling okay ; pt stated, I'm isabela anxious because I'm worried about the future. Being out in the world scares me . denies SI/HI/VH/AH. Pt reports he plans on attending NA meetings and talking to my friends that don't use to assist in his sobriety. Medication Compliance: Yes Side effects from medications: No Attending Groups: Yes Review of Systems Constitutional: Reports as per HPI Eyes: Reports as per HPI Reports as per HPI Cardiovascular: Reports as per HPI Respiratory: Reports as per HPI Gastrointestinal: Reports as per HPI Genitourinary: Reports as per HPI Musculoskeletal: Reports as per HPI Skin/Breast: Reports as per HPI Reports as per HPI Psychiatric: Reports as per HPI Endocrine: Reports as per HPI Hematologic/Lymphatic: Reports as per HPI Allergic/Immunologic: Reports as per HPI Mental Status Exam Mental Status Exam Narrative: Pt is alert and oriented; behavior is cooperative and calm; dressed in casual attire; mood is described as okay ; eye contact appropriate; Speech is normal rate, volume and prosody and not pressured; thought process is organized and goal directed; Thought content is on tx; denies SI/HI/VH/AH. Diagnostics Vital Signs (24Hr): Vital Signs - 24 hr 07/21/23 20:15 Temperature 98.1 F Pulse Rate 74 Respiratory Rate 16 Blood Pressure 112/68 Pulse Oximetry 100 Oxygen Delivery Method Room Air BMI result Body Mass Index 23.5 Labs 07/16/23 17:20 07/19/23 17:43 Labs: Laboratory Results - last 48 hr 07/19/23 17:43 Hepatitis A IgM Ab Nonreactive Hep Bs Antigen Negative Hep Bs Antibody REACTIVE Hep B Core Total Ab Reactive Hep B Core IgM Ab Cancelled Hepatitis C Ab (EIA) Reactive H HIV 1&2 Ab/P24 Ag 4thGn Nonreactive Medications Medications Current Medications Acetaminophen (Acetaminophen 325 Mg Tablet) 650 mg PO Q6H PRN PRN Reason: Headache/Pain Mild Scale (1-3) Al Hydroxide/Mg Hydroxide (Magnesium Hydrox/Alum Hydrox 30 Ml Oral.Susp) 30 ml PO Q6H PRN PRN Reason: Heartburn/Nausea Bupropion HCl (Bupropion Hcl Xl 150 Mg Tab.Er.24h) 150 mg PO DAILY [facility] Last Admin: 07/22/23 08:22 Dose: 150 mg Bupropion HCl (Bupropion Hcl Xl 300 Mg Tab.Er.24h) 300 mg PO DAILY [facility] Last Admin: 07/22/23 08:22 Dose: 300 mg Clonidine HCl (Clonidine Hcl 0.2 Mg Tablet) 0.2 mg PO BID [facility]; Protocol Last Admin: 07/22/23 08:22 Dose: 0.2 mg Hydroxyzine HCl (Hydroxyzine Hcl 25 Mg Tablet) 25 mg PO Q6H PRN PRN Reason: Anxiety Lamotrigine (Lamotrigine 100 Mg Tablet) 100 mg PO DAILY [facility] Lamotrigine (Lamotrigine 25 Mg Tablet) 50 mg PO DAILY [facility] Magnesium Hydroxide (Milk Of Magnesia 30 Ml Oral.Susp) 30 ml PO DAILY PRN PRN Reason: Constipation Methadone HCl (Methadone Hcl 20 Mg/2 Ml Oral.Conc) 100 mg PO DAILY [facility] Last Admin: 07/22/23 08:23 Dose: 100 mg Mirtazapine (Mirtazapine 15 Mg Tablet) 45 mg PO BEDTIME [facility] Last Admin: 07/21/23 20:26 Dose: 45 mg Nicotine (Nicotine 21 Mg Patch.Td24) 21 mg TRANSDERMA DAILY [facility] Last Admin: 07/22/23 08:19 Dose: Not Given Nicotine Polacrilex (Nicotine Polacrilex 2 Mg Gum) 4 mg BUCCAL Q2H PRN PRN Reason: Nicotine Cravings Last Admin: 07/22/23 08:23 Dose: 4 mg Quetiapine Fumarate (Quetiapine Fumarate 200 Mg Tablet) 200 mg PO BEDTIME [facility] Last Admin: 07/21/23 20:26 Dose: 200 mg Trazodone HCl (Trazodone Hcl 50 Mg Tablet) 50 mg PO BEDTIME MRX1 PRN PRN Reason: Insomnia Allergies Allergies Allergy/AdvReac Type Severity Reaction Status Date / Time No Known Allergies Allergy Verified 07/16/23 16:48 Assessment & Plan Assessment & Plan (1) Bipolar 1 disorder: Status: Acute Code(s): F31.9 - Bipolar disorder, unspecified (2) Cocaine use disorder: Status: Acute Code(s): F14.10 - Cocaine abuse, uncomplicated (3) Opioid use disorder: Status: Acute Code(s): F11.90 - Opioid use, unspecified, uncomplicated Plan Patient is a 37 year old male with hx of Bipolar d/o, opioid use d/o, and cocaine use d/o who self presented d/t suicidal ideation with plan to overdose on fentanyl secondary to increased anxiety and depression. Plan: CV 15 minute safety checks Continue home medications Consult to addiction medicine for resource recovery specialist Referral to substance abuse program Labs for HIV/Hep panel discharge planning 07/18: active on unit, social with peers. pt reports feeling okay today; pt stated, I'm not really feeling anything right now because it's too early to tell. I'm just hoping to get into a program. I'm starting to feel like I want to live . pt continues to report passive SI. denies HI/VH/AH. continue current tx plan. 07/19: active on unit, social with peers. attending groups. Pt reports feeling a little better today; pt stated, I'm socializing more which is good because I usually isolate and it contributes to my depression . Pt reports he is hoping to get into a program . denies SI/HI/VH/AH. Hep panel and HIV labs results pending. 07/20: Pt reports feeling calm but anxious today; pt stated, I'm doing okay. I'm just hoping to get in somewhere . denies SI/HI/VH/AH. dairy machine operator farmworker, Brianne, waiting to hear from [facility]. 07/21: active on unit. Pt reports feeling okay ; pt stated, I'm isabela anxious because I'm worried about the future. Being out in the world scares me . denies SI/HI/VH/AH. Pt reports he plans on attending NA meetings and talking to my friends that don't use to assist in his sobriety. Patient educated on: diagnosis, medication risk/benefits, substance abuse and therapeutic strategies Informed Consent: understands Reason for continued inpatient stay Substantial Risk for: med/psych decompensation Time Spent With Patient Time: Total time managing care of this patient today _20___ minutes.
[2023-07-22 20:05] VITALS: BP 126/67; PULSE 77; RESP 14; TEMP 36.6; O2SAT 100
[2023-07-22] MEDS: QUEtiapine Fumarate 200 MG TABLET PO (20:14)
[2023-07-22] MEDS: Mirtazapine 15 MG TABLET 45 MG PO (20:14)
[2023-07-23 08:10] VITALS: BP 100/55; PULSE 68; RESP 16; TEMP 36.1; O2SAT 98
[2023-07-23] MEDS: buPROPion HCl XL 150 MG TAB.ER.24H PO (08:19)
[2023-07-23] MEDS: cloNIDine HCL 0.2 MG TABLET PO ×2 (08:19→20:39)
[2023-07-23] MEDS: buPROPion HCl XL 300 MG TAB.ER.24H PO (08:19)
[2023-07-23] MEDS: lamoTRIgine 25 MG TABLET 50 MG PO (08:19)
[2023-07-23] MEDS: Nicotine Polacrilex 2 MG GUM 4 MG BUCCAL ×6 (08:19→20:38)
[2023-07-23] MEDS: lamoTRIgine 100 MG TABLET PO (08:19)
[2023-07-23] MEDS: methADONE HCl 20 MG/2 ML ORAL.CONC 100 MG PO (08:23)
--- NOTE | 2023-07-23 09:25 | HO.PSYCHPN ---
Subjective Subjective Date of Service: 07/23/23 Reason For Visit: crisis Subjective Notes: Conditional Voluntary Interim History: Reviewed with . Pt reports feeling anxious ; pt stated, I'm just stressed out because of the uncertainty of the future. I'm trying to stay positive . Pt reports he contact [facility] to do intake over the phone but did not receive a date as to if he was accepted or when there would be an available bed. Pt reports he plans on contacting family and friends today, to determine if anyone will allow him to stay with them until a bed is available at a program. If not, pt to be discharged to [facility]; pt aware and agreeable. denies SI/HI/VH/AH. Medication Compliance: Yes Side effects from medications: No Attending Groups: Yes Review of Systems Constitutional: Reports as per HPI Eyes: Reports as per HPI Reports as per HPI Cardiovascular: Reports as per HPI Respiratory: Reports as per HPI Gastrointestinal: Reports as per HPI Genitourinary: Reports as per HPI Musculoskeletal: Reports as per HPI Skin/Breast: Reports as per HPI Reports as per HPI Psychiatric: Reports as per HPI Endocrine: Reports as per HPI Hematologic/Lymphatic: Reports as per HPI Allergic/Immunologic: Reports as per HPI Mental Status Exam Mental Status Exam Narrative: Pt is alert and oriented; behavior is cooperative and calm; dressed in casual attire; mood is described as anxious ; eye contact appropriate; Speech is normal rate, volume and prosody and not pressured; thought process is organized and goal directed; Thought content is on tx; denies SI/HI/VH/AH. Diagnostics Vital Signs (24Hr): Vital Signs - 24 hr 07/22/23 20:05 07/23/23 08:10 Temperature 98 F 97.0 F Pulse Rate 77 68 Respiratory Rate 14 16 Blood Pressure 126/67 100/55 L Pulse Oximetry 100 98 Oxygen Delivery Method Room Air Room Air BMI result Body Mass Index 23.5 Labs 07/16/23 17:20 07/19/23 17:43 Medications Medications Current Medications Acetaminophen (Acetaminophen 325 Mg Tablet) 650 mg PO Q6H PRN PRN Reason: Headache/Pain Mild Scale (1-3) Al Hydroxide/Mg Hydroxide (Magnesium Hydrox/Alum Hydrox 30 Ml Oral.Susp) 30 ml PO Q6H PRN PRN Reason: Heartburn/Nausea Bupropion HCl (Bupropion Hcl Xl 150 Mg Tab.Er.24h) 150 mg PO DAILY [facility] Last Admin: 07/23/23 08:19 Dose: 150 mg Bupropion HCl (Bupropion Hcl Xl 300 Mg Tab.Er.24h) 300 mg PO DAILY [facility] Last Admin: 07/23/23 08:19 Dose: 300 mg Clonidine HCl (Clonidine Hcl 0.2 Mg Tablet) 0.2 mg PO BID [facility]; Protocol Last Admin: 07/23/23 08:19 Dose: 0.2 mg Hydroxyzine HCl (Hydroxyzine Hcl 25 Mg Tablet) 25 mg PO Q6H PRN PRN Reason: Anxiety Lamotrigine (Lamotrigine 100 Mg Tablet) 100 mg PO DAILY [facility] Last Admin: 07/23/23 08:19 Dose: 100 mg Lamotrigine (Lamotrigine 25 Mg Tablet) 50 mg PO DAILY [facility] Last Admin: 07/23/23 08:19 Dose: 50 mg Magnesium Hydroxide (Milk Of Magnesia 30 Ml Oral.Susp) 30 ml PO DAILY PRN PRN Reason: Constipation Methadone HCl (Methadone Hcl 20 Mg/2 Ml Oral.Conc) 100 mg PO DAILY [facility] Last Admin: 07/23/23 08:23 Dose: 100 mg Mirtazapine (Mirtazapine 15 Mg Tablet) 45 mg PO BEDTIME [facility] Last Admin: 07/22/23 20:14 Dose: 45 mg Nicotine (Nicotine 21 Mg Patch.Td24) 21 mg TRANSDERMA DAILY [facility] Last Admin: 07/22/23 08:19 Dose: Not Given Nicotine Polacrilex (Nicotine Polacrilex 2 Mg Gum) 4 mg BUCCAL Q2H PRN PRN Reason: Nicotine Cravings Last Admin: 07/23/23 08:19 Dose: 4 mg Quetiapine Fumarate (Quetiapine Fumarate 200 Mg Tablet) 200 mg PO BEDTIME [facility] Last Admin: 07/22/23 20:14 Dose: 200 mg Trazodone HCl (Trazodone Hcl 50 Mg Tablet) 50 mg PO BEDTIME MRX1 PRN PRN Reason: Insomnia Allergies Allergies Allergy/AdvReac Type Severity Reaction Status Date / Time No Known Allergies Allergy Verified 07/16/23 16:48 Assessment & Plan Assessment & Plan (1) Bipolar 1 disorder: Status: Acute Code(s): F31.9 - Bipolar disorder, unspecified (2) Cocaine use disorder: Status: Acute Code(s): F14.10 - Cocaine abuse, uncomplicated (3) Opioid use disorder: Status: Acute Code(s): F11.90 - Opioid use, unspecified, uncomplicated Plan Patient is a 37 year old male with hx of Bipolar d/o, opioid use d/o, and cocaine use d/o who self presented d/t suicidal ideation with plan to overdose on fentanyl secondary to increased anxiety and depression. Plan: CV 15 minute safety checks Continue home medications Consult to addiction medicine for coach cleaner Referral to substance abuse program Labs for HIV/Hep panel discharge planning 07/18: active on unit, social with peers. pt reports feeling okay today; pt stated, I'm not really feeling anything right now because it's too early to tell. I'm just hoping to get into a program. I'm starting to feel like I want to live . pt continues to report passive SI. denies HI/VH/AH. continue current tx plan. 07/19: active on unit, social with peers. attending groups. Pt reports feeling a little better today; pt stated, I'm socializing more which is good because I usually isolate and it contributes to my depression . Pt reports he is hoping to get into a program . denies SI/HI/VH/AH. Hep panel and HIV labs results pending. 07/20: Pt reports feeling calm but anxious today; pt stated, I'm doing okay. I'm just hoping to get in somewhere . denies SI/HI/VH/AH. furniture lumber production worker, Brianne, waiting to hear from [facility]. 07/21: active on unit. Pt reports feeling okay ; pt stated, I'm isabela anxious because I'm worried about the future. Being out in the world scares me . denies SI/HI/VH/AH. Pt reports he plans on attending NA meetings and talking to my friends that don't use to assist in his sobriety. 07/22: Pt reports feeling anxious ; pt stated, I'm just stressed out because of the uncertainty of the future. I'm trying to stay positive . Pt reports he contact [facility] to do intake over the phone but did not receive a date as to if he was accepted or when there would be an available bed. Pt reports he plans on contacting family and friends today, to determine if anyone will allow him to stay with them until a bed is available at a program. If not, pt to be discharged to [facility]; pt aware and agreeable. denies SI/HI/VH/AH. Patient educated on: diagnosis, medication risk/benefits, substance abuse and therapeutic strategies Informed Consent: understands Reason for continued inpatient stay Substantial Risk for: med/psych decompensation Time Spent With Patient Time: Total time managing care of this patient today _20___ minutes.
[2023-07-23 19:55] VITALS: BP 100/60; PULSE 73; RESP 16; TEMP 36.2; O2SAT 100
[2023-07-23] MEDS: Mirtazapine 15 MG TABLET 45 MG PO (20:38)
[2023-07-23] MEDS: QUEtiapine Fumarate 200 MG TABLET PO (20:39)
[2023-07-24 06:00] VITALS: BP 106/67; PULSE 74; RESP 16; TEMP 36.2; O2SAT 100
[2023-07-24 07:00] VITALS: BMI 24.5
[2023-07-24] MEDS: methADONE HCl 20 MG/2 ML ORAL.CONC 100 MG PO (08:42)
[2023-07-24] MEDS: Nicotine Polacrilex 2 MG GUM 4 MG BUCCAL ×6 (08:42→20:21)
[2023-07-24] MEDS: lamoTRIgine 100 MG TABLET PO (08:43)
[2023-07-24] MEDS: lamoTRIgine 25 MG TABLET 50 MG PO (08:43)
[2023-07-24] MEDS: buPROPion HCl XL 150 MG TAB.ER.24H PO (08:43)
[2023-07-24] MEDS: buPROPion HCl XL 300 MG TAB.ER.24H PO (08:43)
[2023-07-24] MEDS: cloNIDine HCL 0.2 MG TABLET PO ×2 (08:43→20:22)
--- NOTE | 2023-07-24 09:18 | HO.PSYCHPN ---
Subjective Subjective Date of Service: 07/24/23 Reason For Visit: crisis Subjective Notes: Conditional Voluntary Interim History: Reviewed with . Pt declined bed at [facility]. Pt stated, I've been there before. I don't want to go there again. It sucks. I'm going to keep calling other places to see if I can get in. In the meantime, I'll go to the prison . denies SI/HI/VH/AH. Pt reports he plans on following up with outpatient providers and attending NA meetings. Medication Compliance: Yes Side effects from medications: No Attending Groups: Yes Review of Systems Constitutional: Reports as per HPI Eyes: Reports as per HPI Reports as per HPI Cardiovascular: Reports as per HPI Respiratory: Reports as per HPI Gastrointestinal: Reports as per HPI Genitourinary: Reports as per HPI Musculoskeletal: Reports as per HPI Skin/Breast: Reports as per HPI Reports as per HPI Psychiatric: Reports as per HPI Endocrine: Reports as per HPI Hematologic/Lymphatic: Reports as per HPI Allergic/Immunologic: Reports as per HPI Mental Status Exam Mental Status Exam Narrative: Pt is alert and oriented; behavior is cooperative and calm; dressed in casual attire; mood is described as anxious ; eye contact appropriate; Speech is normal rate, volume and prosody and not pressured; thought process is organized and goal directed; Thought content is on tx; denies SI/HI/VH/AH. Diagnostics Vital Signs (24Hr): Vital Signs - 24 hr 07/23/23 19:55 Temperature 97.2 F Pulse Rate 73 Respiratory Rate 16 Blood Pressure 100/60 Pulse Oximetry 100 Oxygen Delivery Method Room Air BMI result Body Mass Index 23.5 Labs 07/16/23 17:20 07/19/23 17:43 Medications Medications Current Medications Acetaminophen (Acetaminophen 325 Mg Tablet) 650 mg PO Q6H PRN PRN Reason: Headache/Pain Mild Scale (1-3) Al Hydroxide/Mg Hydroxide (Magnesium Hydrox/Alum Hydrox 30 Ml Oral.Susp) 30 ml PO Q6H PRN PRN Reason: Heartburn/Nausea Bupropion HCl (Bupropion Hcl Xl 150 Mg Tab.Er.24h) 150 mg PO DAILY [facility] Last Admin: 07/24/23 08:43 Dose: 150 mg Bupropion HCl (Bupropion Hcl Xl 300 Mg Tab.Er.24h) 300 mg PO DAILY [facility] Last Admin: 07/24/23 08:43 Dose: 300 mg Clonidine HCl (Clonidine Hcl 0.2 Mg Tablet) 0.2 mg PO BID [facility]; Protocol Last Admin: 07/24/23 08:43 Dose: 0.2 mg Hydroxyzine HCl (Hydroxyzine Hcl 25 Mg Tablet) 25 mg PO Q6H PRN PRN Reason: Anxiety Lamotrigine (Lamotrigine 100 Mg Tablet) 100 mg PO DAILY [facility] Last Admin: 07/24/23 08:43 Dose: 100 mg Lamotrigine (Lamotrigine 25 Mg Tablet) 50 mg PO DAILY [facility] Last Admin: 07/24/23 08:43 Dose: 50 mg Magnesium Hydroxide (Milk Of Magnesia 30 Ml Oral.Susp) 30 ml PO DAILY PRN PRN Reason: Constipation Methadone HCl (Methadone Hcl 20 Mg/2 Ml Oral.Conc) 100 mg PO DAILY [facility] Last Admin: 07/24/23 08:42 Dose: 100 mg Mirtazapine (Mirtazapine 15 Mg Tablet) 45 mg PO BEDTIME [facility] Last Admin: 07/23/23 20:38 Dose: 45 mg Nicotine (Nicotine 21 Mg Patch.Td24) 21 mg TRANSDERMA DAILY [facility] Last Admin: 07/24/23 08:48 Dose: Not Given Nicotine Polacrilex (Nicotine Polacrilex 2 Mg Gum) 4 mg BUCCAL Q2H PRN PRN Reason: Nicotine Cravings Last Admin: 07/24/23 08:42 Dose: 4 mg Quetiapine Fumarate (Quetiapine Fumarate 200 Mg Tablet) 200 mg PO BEDTIME [facility] Last Admin: 07/23/23 20:39 Dose: 200 mg Trazodone HCl (Trazodone Hcl 50 Mg Tablet) 50 mg PO BEDTIME MRX1 PRN PRN Reason: Insomnia Allergies Allergies Allergy/AdvReac Type Severity Reaction Status Date / Time No Known Allergies Allergy Verified 07/16/23 16:48 Assessment & Plan Assessment & Plan (1) Bipolar 1 disorder: Status: Acute Code(s): F31.9 - Bipolar disorder, unspecified (2) Cocaine use disorder: Status: Acute Code(s): F14.10 - Cocaine abuse, uncomplicated (3) Opioid use disorder: Status: Acute Code(s): F11.90 - Opioid use, unspecified, uncomplicated Plan Patient is a 37 year old male with hx of Bipolar d/o, opioid use d/o, and cocaine use d/o who self presented d/t suicidal ideation with plan to overdose on fentanyl secondary to increased anxiety and depression. Plan: CV 15 minute safety checks Continue home medications Consult to addiction medicine for career coach Referral to substance abuse program Labs for HIV/Hep panel discharge planning 07/18: active on unit, social with peers. pt reports feeling okay today; pt stated, I'm not really feeling anything right now because it's too early to tell. I'm just hoping to get into a program. I'm starting to feel like I want to live . pt continues to report passive SI. denies HI/VH/AH. continue current tx plan. 07/19: active on unit, social with peers. attending groups. Pt reports feeling a little better today; pt stated, I'm socializing more which is good because I usually isolate and it contributes to my depression . Pt reports he is hoping to get into a program . denies SI/HI/VH/AH. Hep panel and HIV labs results pending. 07/20: Pt reports feeling calm but anxious today; pt stated, I'm doing okay. I'm just hoping to get in somewhere . denies SI/HI/VH/AH. out of school hours care worker, Brianne, waiting to hear from [facility]. 07/21: active on unit. Pt reports feeling okay ; pt stated, I'm isabela anxious because I'm worried about the future. Being out in the world scares me . denies SI/HI/VH/AH. Pt reports he plans on attending NA meetings and talking to my friends that don't use to assist in his sobriety. 07/22: Pt reports feeling anxious ; pt stated, I'm just stressed out because of the uncertainty of the future. I'm trying to stay positive . Pt reports he contact [facility] to do intake over the phone but did not receive a date as to if he was accepted or when there would be an available bed. Pt reports he plans on contacting family and friends today, to determine if anyone will allow him to stay with them until a bed is available at a program. If not, pt to be discharged to prison; pt aware and agreeable. denies SI/HI/VH/AH. 07/23: Pt declined bed at [facility]. Pt stated, I've been there before. I don't want to go there again. It sucks. I'm going to keep calling other places to see if I can get in. In the meantime, I'll go to the prison . denies SI/HI/VH/AH. Pt reports he plans on following up with outpatient providers and attending NA meetings. Patient educated on: diagnosis, medication risk/benefits, substance abuse and therapeutic strategies Informed Consent: understands Reason for continued inpatient stay Substantial Risk for: stable for discharge Time Spent With Patient Time: Total time managing care of this patient today _20___ minutes.
[2023-07-24 20:00] VITALS: BP 112/57; PULSE 72; RESP 16; TEMP 37.2; O2SAT 100
[2023-07-24] MEDS: Mirtazapine 15 MG TABLET 45 MG PO (20:21)
[2023-07-24] MEDS: QUEtiapine Fumarate 200 MG TABLET PO (20:22)
[2023-07-25 08:00] VITALS: BP 110/61; PULSE 76; TEMP 36.4; O2SAT 98
[2023-07-25] MEDS: Naloxone HCl Nasal TAKE HOME 4 MG SPRAY 8 MG NOSTRILALT (08:32)
[2023-07-25] MEDS: buPROPion HCl XL 300 MG TAB.ER.24H PO (08:33)
[2023-07-25] MEDS: Nicotine Polacrilex 2 MG GUM 4 MG BUCCAL ×2 (08:33→10:28)
[2023-07-25] MEDS: buPROPion HCl XL 150 MG TAB.ER.24H PO (08:33)
[2023-07-25] MEDS: lamoTRIgine 25 MG TABLET 50 MG PO (08:33)
[2023-07-25] MEDS: lamoTRIgine 100 MG TABLET PO (08:33)
[2023-07-25] MEDS: cloNIDine HCL 0.2 MG TABLET PO (08:37)
[2023-07-25] MEDS: methADONE HCl 20 MG/2 ML ORAL.CONC 100 MG PO (08:38)
--- NOTE | 2023-07-25 09:02 | PM.PSYDC ---
DS: Providers Provider Date of Service: 07/25/23 Date of admission: 07/17/23 12:25 Date of discharge: 07/25/23 Primary care physician: Unknown Physician Admitting clinician: Shannon Virk Attending physician on admission: Dexter Mares Consults: 07/18/23 16:21 Addiction Medicine Routine Consulting Provider: Addiction Covering Reason for consultation: classroom technology coach Attending physician on discharge: Felix Flower Discharging clinician: Shannon Virk DS: Diagnosis Discharge Diagnosis (1) Bipolar 1 disorder: Status: Acute (2) Cocaine use disorder: Status: Acute (3) Opioid use disorder: Status: Acute DS: Medications Discharge Medications Home Medications: Home Medications Medication Instructions Recorded Confirmed methadone 10 mg/mL oral 100 mg PO DAILY 07/16/23 07/16/23 concentrate (Methadose) Previous Rx's Medication Instructions Recorded bupropion HCl 450 mg 24 hr tablet, 450 mg PO DAILY 30 days #30 tabs 07/24/23 extended release clonidine HCl 0.2 mg tablet 0.2 mg PO BID 30 days #60 tabs 07/24/23 lamotrigine 150 mg tablet 150 mg PO DAILY 30 days #30 tabs 07/24/23 mirtazapine 45 mg tablet 45 mg PO BEDTIME 30 days #30 tabs 07/24/23 nicotine 21 mg/24 hr daily 1 patch topical DAILY 30 days #30 07/24/23 transdermal patch ea quetiapine 200 mg tablet 200 mg PO BEDTIME 30 days #30 tabs 07/24/23 Mental Status Exam Mental Status Exam Narrative: Pt is alert and oriented; behavior is cooperative and calm; dressed in casual attire; mood is described as okay ; eye contact appropriate; Speech is normal rate, volume and prosody and not pressured; thought process is organized and goal directed; Thought content is on tx; denies SI/HI/VH/AH. Data Data Completed and Pending Completed studies during hospitalization [Text1]: 07/19/23 17:43 Sodium 139 Potassium 3.8 Chloride 101 Carbon Dioxide 29 Anion Gap 13 BUN 12 Creatinine 0.83 Estim Creat Clear Calc 115.0 Estimated GFR > 60 Fasting Glucose 83 Calcium 9.1 Total Bilirubin 0.2 AST 31 ALT 34 Alkaline Phosphatase 83 Total Protein 7.6 Albumin 3.8 Triglycerides 219 H Cholesterol 161 LDL Cholesterol, Calc 70 HDL Cholesterol 48 Hepatitis A IgM Ab Nonreactive Hep Bs Antigen Negative Hep Bs Antibody REACTIVE Hep B Core Total Ab Reactive Hep B Core IgM Ab Cancelled Hepatitis C Ab (EIA) Reactive H HIV 1&2 Ab/P24 Ag 4thGn Nonreactive DS: Summary Hospital Course Hospital Course: Patient is a 37 year old male with hx of Bipolar d/o, opioid use d/o, and cocaine use d/o who self presented d/t suicidal ideation with plan to overdose on fentanyl secondary to increased anxiety and depression. Per crisis report, pt did not have enough money to overdose and contemplated jumping off a bridge but decided to come get help instead. Pt was discharged from [facility] four days ago, did not follow up with aftercare and went on a drug binge . Pt has struggled with mental illness for the last 18 years(hx of bipolar d/o); pt mother reported hx of prior attempts starting when pt graduated high school, including drinking antifreeze and motor oil, attempts at drowning himself, hanging himself, being stopped from jumping off a building and laying on train tracks. Pt's mother also reported hx of 6-8 overdoses; hx of detoxes, rehabs and inpatient hospitalizations (last detox admission was December 2022). Mother stated, I think these are cries for help and he does not want to . Pt reports paranoia with drug use and believes someone is out to get me or that something bad will happen . UTOX positive for fentanyl and cocaine; he reported binging cocaine and crack for the past four days . Pt reported his longest time with sobriety has been 7-8 months. During admission assessment, pt present calm and cooperative. Pt reports feeling depressed and suicidal ; pt stated, I was feeling depressed and suicidal. I haven't been talking to my family, I've been using drugs and not wanting to do anything. I'm also getting paranoid when I use . Pt reports he was using 1-2 bags of heroin and 30 capsules of cocaine for the past few days . Pt denies any withdrawal symptoms. He would like HIV/Hep C testing. Pt stated, I don't know what is causing my depression. Sometimes I think if I was it would be better . Pt reports passive suicidal ideation with no plan. denies HI/VH/AH. He reports being medication compliant prior to admission. Pt reports he is interested in being referred to a substance abuse program. During hospital course, CV 15 minute safety checks Continue home medications Consult to addiction medicine for classroom technology coach Referral to substance abuse program discharge planning active on unit, social with peers. pt reports feeling okay today; pt stated, I'm not really feeling anything right now because it's too early to tell. I'm just hoping to get into a program. I'm starting to feel like I want to live . pt continues to report passive SI. denies HI/VH/AH. continue current tx plan. attending groups. Pt reports feeling a little better today; pt stated, I'm socializing more which is good because I usually isolate and it contributes to my depression . Pt reports he is hoping to get into a program . denies SI/HI/VH/AH. Pt reports feeling calm but anxious today; pt stated, I'm doing okay. I'm just hoping to get in somewhere . denies SI/HI/VH/AH. social worker masters, Brianne, waiting to hear from [facility]. active on unit. Pt reports feeling okay ; pt stated, I'm isabela anxious because I'm worried about the future. Being out in the world scares me . denies SI/HI/VH/AH. Pt reports he plans on attending NA meetings and talking to my friends that don't use to assist in his sobriety. Pt reports feeling anxious ; pt stated, I'm just stressed out because of the uncertainty of the future. I'm trying to stay positive . Pt reports he contact [facility] to do intake over the phone but did not receive a date as to if he was accepted or when there would be an available bed. Pt reports he plans on contacting family and friends today, to determine if anyone will allow him to stay with them until a bed is available at a program. If not, pt to be discharged to residential; pt aware and agreeable. denies SI/HI/VH/AH. Pt declined bed at [facility]. Pt stated, I've been there before. I don't want to go there again. It sucks. I'm going to keep calling other places to see if I can get in. In the meantime, I'll go to the residential . denies SI/HI/VH/AH. Pt reports he plans on following up with outpatient providers and attending NA meetings. Time spent discussing smoking cessation with patient: 3 to 10 minutes Status at Discharge Cognitive/behavioral status at discharge: Patient was interviewed prior to discharge and found to be fully oriented and without any SI or HI. Patient has insight and demonstrates good judgment in terms of wanting to pursue treatment. Patient has a safety plan that includes presenting to the closest ER or calling 911 if feeling unsafe. Functional status at discharge: independent ambulation Overall status at discharge: patient is back to baseline Time Spent with Patient Time attestation: Total time managing care of this patient today _30___ minutes. Time spent: Less than 30 minutes Discharge Plan Discharge Anticipated Discharge Date/Time: 07/25/23 11:00 Patient Disposition: [facility] Discharge Diagnosis: Bipolar d/o, opioid use d/o, cocaine use d/o Referrals: Therapy & Psychiatry [Other] - 1 Week (You can present to the clinic listed above, Friday through Friday, between the hours of 8am and 8pm in order to obtain outpatient mental health treatment) [facility] [Other] - 1 Week Discharge Medications: New clonidine HCl 0.2 mg tablet 0.2 mg PO BID 30 Days Qty: 60 0RF bupropion HCl 450 mg tablet extended release 24 hr 450 mg PO DAILY 30 Days Qty: 30 0RF Continued methadone [Methadose] 10 mg/mL Concentrate 100 mg PO DAILY lamotrigine 150 mg tablet 150 mg PO DAILY 30 Days Qty: 30 0RF quetiapine 200 mg tablet 200 mg PO BEDTIME 30 Days Qty: 30 0RF nicotine 21 mg/24 hr patch 24 hour 1 patch topical DAILY 30 Days Qty: 30 0RF mirtazapine 45 mg tablet 45 mg PO BEDTIME 30 Days Qty: 30 0RF Discontinued clonidine HCl 0.1 mg tablet 0.2 mg PO BID bupropion HCl 300 mg tablet extended release 24 hr 300 mg PO DAILY bupropion HCl 150 mg tablet extended release 24 hr 150 mg PO QAM Discharge Orders: Discharge Order (Routine); Ordered 07/25/23 Ordered By: Shannon Virk Diet: Regular diet Activity on Discharge: As tolerated Stand Alone Forms: Patient Portal Discharge page, Community Support Care Plan Goals: Maintain mood and safe behaviors Take medications as prescribed Continue to pursue sobriety Practice coping skills Continue with outpatient providers and reach out to them as needed Health Concerns: Mood stability and behaviors Sobriety Plan of Treatment: Follow up with your PCP, psychiatric provider and other outpatient providers regarding above concerns Take medications as prescribed Assessment: Patient was interviewed prior to discharge and found to be fully oriented and without any SI or HI. Patient has insight and demonstrates good judgment in terms of wanting to pursue treatment. Patient has a safety plan that includes presenting to the closest ER or calling 911 if feeling unsafe. Discharge Date/Time: 07/25/23 10:38
== END 2023-07-25 10:38 | disposition home or self-care (01) | DRG 753 ==
LOC: HO.ED 17:55 → HO.PADLT16 07-17 13:02
PROVIDERS: Admitting Provider Registered Nurse; Emergency Provider Student in an Organized Health Care Education/Training Program; Responsible Provider Registered Nurse; Visit Provider Psychiatry & Neurology Psychiatry
DX: F31.9 Bipolar disorder, unspecified (principal); R45.851 Suicidal ideations; F11.20 Opioid dependence, uncomplicated; F17.210 Nicotine dependence, cigarettes, uncomplicated; F14.10 Cocaine abuse, uncomplicated; Z20.822 Contact with and (suspected) exposure to COVID-19; Z59.02 Unsheltered homelessness; Z71.6 Tobacco abuse counseling; Z79.899 Other long term (current) drug therapy
CPT/HCPCS: 36415; 80053; 80061; 80307; 81001; 85025; 86704; 86706; 86709; 86803; 87340; 87389; 87635; 93005; 99285; S9485

== ENCOUNTER → 2023-07-17 09:49 | Outpatient (BNV) | payer OTHER, SELFPAY | PROVIDERS: Admitting Provider Registered Nurse; Emergency Provider Student in an Organized Health Care Education/Training Program; Responsible Provider Registered Nurse; Visit Provider Internal Medicine | DX: F11.10 Opioid abuse, uncomplicated (principal); F14.10 Cocaine abuse, uncomplicated | CPT/HCPCS: 93010 ==

== ENCOUNTER → 2023-07-17 12:25 | Outpatient (BNV) | payer OTHER, SELFPAY | PROVIDERS: Admitting Provider Registered Nurse; Emergency Provider Student in an Organized Health Care Education/Training Program; Responsible Provider Registered Nurse; Visit Provider Registered Nurse | DX: F31.4 Bipolar disorder, current episode depressed, severe, without psychotic features (principal); F14.10 Cocaine abuse, uncomplicated; F11.90 Opioid use, unspecified, uncomplicated | CPT/HCPCS: 90792; 99231; 99232; 99238 ==